=== PATIENT | male | born 1955 | race Caucasian/White ===

== ENCOUNTER → 2017-11-30 | Outpatient (CLI) | payer MEDICARE, OTHER | END | disposition home or self-care (01) | LOC: RADMN 12:16 | PROVIDERS: ATTEND General Practice | DX: M77.8 Other enthesopathies, not elsewhere classified (principal); M46.04 Spinal enthesopathy, thoracic region; I70.8 Atherosclerosis of other arteries; M47.896 Other spondylosis, lumbar region; M54.2 Cervicalgia | CPT/HCPCS: 72125; 72128; 72131 ==